=== PATIENT | female | born 2000 ===

== ENCOUNTER 2020-07-27 13:44 | Outpatient (REF) | payer OTHER, SELFPAY | END 2020-07-27 13:45 | disposition home or self-care (01) | LOC: HO.LAB 13:44 | PROVIDERS: Visit Provider Internal Medicine | DX: Z20.828 Contact with and (suspected) exposure to other viral communicable diseases (principal) | CPT/HCPCS: 87635 ==

== ENCOUNTER → 2020-09-01 09:39 | Outpatient (BNVA) | payer OTHER, SELFPAY | PROVIDERS: Visit Provider Advanced Practice Midwife | DX: Z76.89 Persons encountering health services in other specified circumstances (principal) ==

== ENCOUNTER → 2020-09-02 08:48 | Outpatient (BNVA) | payer OTHER, SELFPAY | PROVIDERS: Visit Provider Advanced Practice Midwife | DX: Z30.9 Encounter for contraceptive management, unspecified (principal) | CPT/HCPCS: 96372; 99212; J1050 ==

== ENCOUNTER 2020-09-29 13:08 | Outpatient (REF) | payer OTHER, SELFPAY ==
[2020-09-30 08:52] LABS: BV Int Neg Control Negative (Negative); BV Int Pos Control Positive (Positive)
[2020-09-30 20:53] LABS: C. trachomatis RNA TMA NOT DETECTED (NOT DETECTED); N. gonorrhoeae RNA TMA NOT DETECTED (NOT DETECTED)
== END 2020-09-29 13:09 | disposition home or self-care (01) ==
LOC: HO.LAB 13:08
PROVIDERS: PCP Internal Medicine; Visit Provider Advanced Practice Midwife
DX: Z12.4 Encounter for screening for malignant neoplasm of cervix (principal); Z20.2 Contact with and (suspected) exposure to infections with a predominantly sexual mode of transmission
CPT/HCPCS: 87480; 87491; 87510; 87591; 87660; 88142

== ENCOUNTER → 2020-11-25 10:39 | Outpatient (BNVA) | payer OTHER, SELFPAY | PROVIDERS: Visit Provider Advanced Practice Midwife | DX: Z30.9 Encounter for contraceptive management, unspecified (principal) | CPT/HCPCS: 81025; 96372; 99211 ==

== ENCOUNTER → 2020-12-03 13:38 | Outpatient (BNVA) | payer OTHER, SELFPAY | PROVIDERS: Visit Provider Internal Medicine Cardiovascular Disease | DX: R55 Syncope and collapse (principal) | CPT/HCPCS: 99212 ==

== ENCOUNTER → 2020-12-15 13:04 | Outpatient (BNV) | payer OTHER, SELFPAY | PROVIDERS: Visit Provider Internal Medicine | DX: D50.9 Iron deficiency anemia, unspecified (principal) | CPT/HCPCS: 99213; 99214 ==

== ENCOUNTER → 2021-02-17 12:28 | Outpatient (BNVA) | payer OTHER, SELFPAY | PROVIDERS: PCP Internal Medicine; Visit Provider Advanced Practice Midwife | DX: Z30.9 Encounter for contraceptive management, unspecified (principal) | CPT/HCPCS: 96372; 99211; J1050 ==

== ENCOUNTER → 2021-05-12 15:14 | Outpatient (BNVA) | payer OTHER, SELFPAY | PROVIDERS: PCP Internal Medicine; Visit Provider Advanced Practice Midwife | DX: Z30.42 Encounter for surveillance of injectable contraceptive (principal) | CPT/HCPCS: 96372 ==

== ENCOUNTER → 2021-07-30 13:08 | Outpatient (BNVA) | payer OTHER, SELFPAY | PROVIDERS: PCP Internal Medicine; Visit Provider Advanced Practice Midwife | DX: Z30.42 Encounter for surveillance of injectable contraceptive (principal) | CPT/HCPCS: 96372; 99211 ==

== ENCOUNTER 2021-10-06 13:19 | Outpatient (REF) | payer OTHER, SELFPAY ==
[2021-10-07 03:53] LABS: CT PCR NOT DETECTED (Not Detect.); NG PCR NOT DETECTED (Not Detect.)
[2021-10-07 09:04] LABS: BV Int Neg Control Negative (Negative); BV Int Pos Control Positive (Positive)
== END 2021-10-06 13:20 | disposition home or self-care (01) ==
LOC: HO.LAB 13:19
PROVIDERS: Visit Provider Advanced Practice Midwife
DX: Z01.419 Encounter for gynecological examination (general) (routine) without abnormal findings (principal); Z11.3 Encounter for screening for infections with a predominantly sexual mode of transmission; Z11.8 Encounter for screening for other infectious and parasitic diseases; Z79.3 Long term (current) use of hormonal contraceptives; F32.A Depression, unspecified
CPT/HCPCS: 87480; 87491; 87510; 87591; 87660

== ENCOUNTER → 2021-10-15 12:51 | Outpatient (BNVA) | payer OTHER, SELFPAY | PROVIDERS: Visit Provider Advanced Practice Midwife | DX: Z30.42 Encounter for surveillance of injectable contraceptive (principal) | CPT/HCPCS: 96372; 99211 ==

== ENCOUNTER → 2022-01-03 09:06 | Outpatient (BNVA) | payer OTHER, SELFPAY | PROVIDERS: Visit Provider Advanced Practice Midwife | DX: Z30.42 Encounter for surveillance of injectable contraceptive (principal) | CPT/HCPCS: 96372; 99212 ==

== ENCOUNTER → 2022-03-28 08:20 | Outpatient (BNVA) | payer OTHER, SELFPAY | PROVIDERS: Visit Provider Advanced Practice Midwife | DX: Z30.42 Encounter for surveillance of injectable contraceptive (principal) | CPT/HCPCS: 96372; 99211 ==

== ENCOUNTER → 2022-06-20 14:34 | Outpatient (BNVA) | payer OTHER, SELFPAY | PROVIDERS: Visit Provider Advanced Practice Midwife | DX: Z30.9 Encounter for contraceptive management, unspecified (principal) | CPT/HCPCS: 96372; 99211 ==

== ENCOUNTER 2024-02-20 11:05 | Outpatient (REF) | payer OTHER, SELFPAY | END 2024-02-20 11:06 | disposition home or self-care (01) | LOC: HO.LAB 11:05 | PROVIDERS: Visit Provider Advanced Practice Midwife | DX: Z20.2 Contact with and (suspected) exposure to infections with a predominantly sexual mode of transmission (principal) | CPT/HCPCS: 99212 ==

== ENCOUNTER 2024-02-20 11:05 | Outpatient (AMB) | payer OTHER, SELFPAY ==
--- NOTE | 2024-02-20 11:05 | A.OFFVIS_ITS ---
Vital Signs 02/20/24 11:11 Height 5 ft 1 in Weight 125 lb BMI 23.6 BP 100/60 Intake Visit Reasons: std testing Coning Machine Operator Required: No Information Interpreted: clinical only Joint Supervisor: Joint Supervisor Present Allergies environmental allergies Allergy (Verified 02/20/24 11:12) Runny Nose Bleach (Sodium Hypochlorite) Adverse Reaction (Verified 02/20/24 11:12) Difficulty Breathing Medication List - Last Reconciled 02/20/24 by Paulette Will CNM No Known Home Meds Is last menstrual period known: Yes Last menstrual period: 02/10/24 HPI HPI std testing: Details: She is here For STD check she just became active recently father of her 4. She is actually court with discuss parenting child support. She says she has not have penetrated sex with him thinking she can not get but she still wants checking for STDs they have been very intimate. She was thinking she could not get because she has not gotten so far she was not Depo- Provera periods back last fall. She is not interested in another method of control at this time though I invited her to really consider what she w ould do if she got after some discussion she decided to accepted prescription for Plan B. visit discussed signs and symptoms of ovulation and the extended number of days on either side of ovulation where she could get . She decided she get blood work for STIs today. She expressed shy about getting an exam she reminded me that I delivered her baby, June [id number]. She shares birthday with her daughter. [facility] Medical History Depressed Social History Household Members: Children Housing: Apartment Alcohol intake: never Patient Tobacco Use Status: Never used Tobacco Current occupational status: employed Gender identity: Female Female Reproductive History Menstrual Age of Menarche: 10 Duration of menses: 3-5 days Date of last menstrual period: 02/10/24 control method: none Total pregnancies: 1 Full term: 1 Date of last pap smear: 09/30/20 (negative) History of abnormal pap smear: No Physical Exam Vital Signs: Last Vital Signs BP 100/60 02/20/24 11:11 BMI result Body Mass Index 23.6 External Female Exam: normal external appearance and normal appearance of the urethra Speculum Exam - Vagina: normal appearance of the vagina and normal vaginal discharge Speculum Exam - Cervix: normal appearance of the cervix and Cervical os closed Results Reviewed Results Reviewed: Name: Christine Alejandro Age/Sex: 20/F Attending: Paulette Will CNM : 2000 Submitted by: Paulette Will CNM Copies to: MR #: [id number] Status: DEP REF Collected: 09/29/20 Location: .LAB Received: 09/30/20 Interpretation Satisfactory for evaluation. Mild inflammation. Negative for intraepithelial lesion or malignancy. Clinical Information LMP: Spotting on Depo Previous PAP test: Unknown date/findings Other history: On Depo Material Received ThinPrep cervical Electronically Signed By: TERESITA Jose (ASCP) 10/16/20 1211 The Pap Test is a screening procedure with the inherent possibility of both fal se negative and false positive results. Results should be interpreted in the context of historic and current clinical findings. Reliability of the Pap Test is enhanced by performing the test on a regular repetitive basis. Patient: Page 1 of 1 Assessment & Plan Assessment & Plan (1) Encounter for control: Code(s): Z30.9 - Encounter for contraceptive management, unspecified Category: Medical (2) Potential exposure to STD: Code(s): Z20.2 - Contact with and (suspected) exposure to infections with a predominantly sexual mode of transmission Category: Medical (3) Cervical cancer screening: Comment: 09/29/20 pap= neg Code(s): Z12.4 - Encounter for screening for malignant neoplasm of cervix Category: Medical Plan She is here For STD check she just became active recently father of her 4. She is actually court with discuss parenting child support. She says she has not have penetrated sex with him thinking she can not get but she still wants checking for STDs they have been very intimate. She was thinking she could not get because she has not gotten so far she was not Depo- Provera periods back last fall. She is not interested in another method of control at this time though I invited her to really consider what she would do if she got after some discussion she decided to accepted prescription for Plan B. visit discussed signs and symptoms of ovulation and the extended number of days on either side of ovulation where she could get . She decided she get blood work for STIs today. She expressed shy about getting an exam she reminded me that I delivered her baby, June [id number]. She shares birthday with her daughter. Orders: Orders Hepatitis C Antibody Today Z12.4 - Encounter for screening for malignant neoplasm of cervix, Z20.2 - Contact with and (suspected) exposure to infections with a predominantly sexual mode of transmission, Z30.9 - Encounter for contraceptive management, unspecified Bacterial Vaginosis Panel Today Z20.2 - Contact with and (suspected) exposure to infections with a predominantly sexual mode of transmission CT NG by PCR Today Z01.419 - Encounter for gynecological examination (general) (routine) without abnormal findings Hepatitis B Surface Antigen Today Z12.4 - Encounter for screening for malignant neoplasm of cervix, Z20.2 - Contact with and (suspected) exposure to infections with a predominantly sexual mode of transmission, Z30.9 - Encounter for contraceptive management, unspecified HIV Ab/Ag Today Z12.4 - Encounter for screening for malignant neoplasm of cer vix, Z20.2 - Contact with and (suspected) exposure to infections with a predominantly sexual mode of transmission, Z30.9 - Encounter for contraceptive management, unspecified Syphilis Screen Today Z12.4 - Encounter for screening for malignant neoplasm of cervix, Z20.2 - Contact with and (suspected) exposure to infections with a predominantly sexual mode of transmission, Z30.9 - Encounter for contraceptive management, unspecified Medications: New levonorgestrel (Plan B One-Step) 1.5 mg PO ONCE 1 tab 4RF Coding Level of Care Code Est Pt Level 3 (10593) Diagnoses Encounter for control Z30.9 Potential exposure to STD Z20.2 Cervical cancer screening Z12.4
[2024-02-20 11:11] VITALS: BP 100/60; BMI 23.6
== END 2024-02-20 11:41 | disposition home or self-care (01) ==
PROVIDERS: Visit Provider Advanced Practice Midwife
DX: Z30.9 Encounter for contraceptive management, unspecified (principal); Z20.2 Contact with and (suspected) exposure to infections with a predominantly sexual mode of transmission
CPT/HCPCS: 99213

== ENCOUNTER 2024-02-20 12:36 | Outpatient (REF) | payer OTHER, SELFPAY ==
[2024-02-20 14:36] LABS: CT PCR NOT DETECTED (Not Detect.); NG PCR NOT DETECTED (Not Detect.)
[2024-02-21 08:08] LABS: Syphilis Screen Nonreactive (Nonreactive)
[2024-02-21 08:25] LABS: HBsAGNum1 0.22 S/CO (0.00-0.99); HIV AB/AG Nonreactive (Nonreactive); HIV Num 1 0.05 S/CO (0.00-0.99); Hepatitis B Surface Antigen Negative (Negative); ~Hepatitis C Antibody Nonreactive (Nonreactive)
[2024-02-21 09:24] LABS: Bacterial Vaginosis PCR NEGATIVE (Negative); Candida Group PCR NOT DETECTED (Not Detect); Candida glab krusei PCR NOT DETECTED (Not Detect); Trichomonas vaginalis PCR NOT DETECTED (Not Detect)
== END 2024-02-20 12:37 | disposition home or self-care (01) ==
LOC: HO.HHCL 12:36
PROVIDERS: Visit Provider Advanced Practice Midwife
DX: Z20.2 Contact with and (suspected) exposure to infections with a predominantly sexual mode of transmission (principal); Z12.4 Encounter for screening for malignant neoplasm of cervix
CPT/HCPCS: 0352U; 0353U; 86780; 86803; 87340; 87389

== ENCOUNTER 2024-04-09 14:30 | Outpatient (RCR) | payer OTHER, SELFPAY ==
[2024-03-19 10:13] VITALS: BP 100/53; PULSE 61; RESP 16; TEMP 37.1; O2SAT 100
[2024-03-19] MEDS: 0.9 % Sodium Chloride Flush 10 ML SYRINGE 5 ML IVFLUSH (10:20)
[2024-03-19] MEDS: Acetaminophen 325 MG TABLET 650 MG PO (10:26)
[2024-03-19] MEDS: diphenhydrAMINE HCL 25 MG CAPSULE PO (10:26)
[2024-03-19] MEDS: Iron Sucrose Complex 200 MG in 0.9 % Sodium Chloride 100 ML 440 MG IV (10:46)
[2024-03-26 12:17] VITALS: BMI 23.8
[2024-03-26 12:18] VITALS: BP 93/57; PULSE 85; RESP 18; TEMP 37.4; O2SAT 98
[2024-03-26] MEDS: Acetaminophen 325 MG TABLET 650 MG PO (12:36)
[2024-03-26] MEDS: diphenhydrAMINE HCL 25 MG CAPSULE PO (12:38)
[2024-03-26] MEDS: Iron Sucrose Complex 200 MG in 0.9 % Sodium Chloride 100 ML 440 MG IV (12:46)
[2024-04-02 11:02] VITALS: BP 93/54; PULSE 76; RESP 16; TEMP 37.2; O2SAT 100
[2024-04-02] MEDS: Iron Sucrose Complex 200 MG in 0.9 % Sodium Chloride 100 ML 837.9 MG IV (11:11)
[2024-04-09 14:34] VITALS: BP 97/56; PULSE 75; RESP 16; TEMP 36.1; O2SAT 99
[2024-04-09] MEDS: Iron Sucrose Complex 200 MG in 0.9 % Sodium Chloride 100 ML 440 MG IV (14:44)
--- NOTE | 2024-04-09 14:50 | HO.INF ---
patient declined premedications
[2024-04-09] MEDS: 0.9 % Sodium Chloride Flush 10 ML SYRINGE 5 ML IVFLUSH (15:05)
== END 2024-04-09 15:14 | disposition home or self-care (01) ==
LOC: HO.INF 14:30
PROVIDERS: Visit Provider Internal Medicine
DX: D64.9 Anemia, unspecified (principal)
CPT/HCPCS: 96365; 96374; J1756

== ENCOUNTER 2024-05-29 09:49 | Outpatient (AMB) | payer OTHER, SELFPAY ==
[2024-05-29 09:50] VITALS: BP 98/60; BMI 22.8
--- NOTE | 2024-05-29 09:50 | A.OFFVIS_ITS ---
Vital Signs 05/29/24 09:50 Height 5 ft Weight 117 lb BMI 22.8 BP 98/60 Intake Visit Reasons: control consult ( depo) Chemical Worker Required: No Information Interpreted: clinical only Food Safety Manager: Food Safety Manager Present Allergies environmental allergies Allergy (Verified 05/29/24 09:50) Runny Nose Bleach (Sodium Hypochlorite) Adverse Reaction (Verified 05/29/24 09:50) Difficulty Breathing Medication List - Last Reconciled 05/29/24 by Paulette Will CNM No Known Home Meds HPI HPI control consult ( depo): Details: Here for a discussion to get back on the control she has been on Depo- Provera in the past and she is very familiar with it and did not have any problems with that she was offered for about a year and talked about it at the last visit when she came for an STD check but she has decided to get back on it. Her last period was beginning of May and she is due for it coming up probably next week. 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 She is awaiting an 1st appointment with a therapist for support. [facility] Medical History Depressed Social History Household Members: Children Housing: Apartment Alcohol intake: never Patient Tobacco Use Status: Never used Tobacco Current occupational status: employed Gender identity: Female Female Reproductive History Menstrual Age of Menarche: 10 control method: none Total pregnancies: 1 Full term: 1 Date of last pap smear: 09/30/20 (negative) Physical Exam Vital Signs: Last Vital Signs BP 98/60 05/29/24 09:50 BMI result Body Mass Index 22.8 Results Reviewed Results Reviewed: Name: JavonChristine Age/Sex: 20/F Attending: Paulette Will CNM : 2000 Submitted by: NicolettePaulette Mendel Copies to: MR #: [id number] Status: DEP REF Collected: 09/29/20 Location: .LAB Received: 09/30/20 Interpretation Satisfactory for evaluation. Mild inflammation. Negative for intraepithelial lesion or malignancy. Clinical Information LMP: Spotting on Depo Previous PAP test: Unknown date/findings Other history: On Depo Material Received ThinPrep cervical Electronically Signed By: TERESITA Jose (ASCP) 10/16/20 1211 The Pap Test is a screening procedure with the inherent possibility of both false negative and false positive results. Results should be interpreted in the context of historic and current clinical findings. Reliability of the Pap Test is enhanced by performing the test on a regular repetitive basis. Patient: Page 1 of 1 Assessment & Plan Assessment & Plan (1) Cervical cancer screening: Comment: 09/29/20 pap= neg Code(s): Z12.4 - Encounter for screening for malignant neoplasm of cervix Category: Medical (2) Depot contraception: Comment: Reordered 05/29/2024 for 1 year, to be started beginning of the next period. Code(s): Z30.42 - Encounter for surveillance of injectable contraceptive Category: Social Hx Plan Reviewed her supports and stressors reviewed side effects of Depo-Provera. She is on a waiting list story is awaiting a reversed appointment with therapist for support. She has active plans to change her job to 1 that will work better for her and her daughter. She is very clear she wants to restart the Depo-Provera and she has a lot of experience with it having been on it in past. Reviewed that the last visit was a visit for STI screening so she still is due for her annual with Pap and that will be scheduled as well. I recommend she brain picker the Depo-Provera as soon as she can and as soon as she gets her period, To call the office the 1st day that it is open (this is weekend so she may get her this -- we will be closed Monday) to get the Depo-Provera and then every 12 weeks from there,. We will see her for her next annual and Pap soon. Medications: New medroxyprogesterone (Depo-Provera) 150 mg IM Q12W 1 mL 5RF Coding Level of Care Code Est Pt Level 3 (52845) Diagnoses Cervical cancer screening Z12.4 Depot contraception Z30.42
== END 2024-05-29 10:29 | disposition home or self-care (01) ==
PROVIDERS: Visit Provider Advanced Practice Midwife
DX: Z30.42 Encounter for surveillance of injectable contraceptive (principal)
CPT/HCPCS: 99213

== ENCOUNTER → 2024-05-29 09:49 | Outpatient (BNVA) | payer OTHER, SELFPAY | PROVIDERS: Visit Provider Advanced Practice Midwife | DX: Z30.42 Encounter for surveillance of injectable contraceptive (principal) | CPT/HCPCS: 99212 ==

== ENCOUNTER 2024-05-31 09:03 | Outpatient (AMB) | payer OTHER, SELFPAY ==
--- NOTE | 2024-05-31 09:35 | AM.OFFVISNUR ---
Vital Signs 05/31/24 09:36 Height 5 ft Weight 117 lb BMI 22.8 Intake Visit Reasons: DEPO Flume Worker Required: No Allergies environmental allergies Allergy (Verified 05/29/24 09:50) Runny Nose Bleach (Sodium Hypochlorite) Adverse Reaction (Verified 05/29/24 09:50) Difficulty Breathing Medication List - Last Reconciled 05/31/24 by Terese Murry medroxyprogesterone (Depo-Provera) 150 mg IM Q12W Is last menstrual period known: Yes Last menstrual period: 05/29/24 Post menopausal: No Patient : No Nursing Note Christine is here for Depo restart. No c/o. LMP 05/29/24 and WNL. Pt denies UPI in the last 2 weeks. Pt tolerated injection well and she will schedule her next injection in 12 weeks. Pt verbalizes understanding and agrees with plan. No further questions. Office Procedures Depo Questionnaire If YES to any of the following questions, please consult a provider. Date of last menstrual period: 05/29/24 Menstrual pattern since last injection has been: Not Applicable Irregular bleeding?: No Breast lumps or other breast changes?: No Changes in weight or appetite?: No Depression or changes in mood?: No Abnormal hair growth or loss?: No Skin problems (rash, acne, discoloration)?: No Pain at the injection site?: No Headaches?: No Nervousness?: No Abdominal pain or cramping?: No Dizziness or nausea?: No Fatigue or weakness?: No Decrease in sexual drive?: No Chest pain or shortness of breath?: No Swelling in arms or legs?: No Form completed by?: Terese Murry bandage winding machine operator Meds Depo-Provera 150 mg/mL intramuscular syringe Performing Provider: Paulette Will CNM Performing Location: [facility] Administered by: Terese Murry on 05/31/24 09:39 Dose Route Admin Location Dispensed Lot Number Expiration Date [facility] Central Office Operator Supervisor 150 mg IM left deltoid 1 mL [id number] 08/31/26 65979-184-32 [facility] Assessment & Plan Assessment & Plan (1) Well woman exam with routine gynecological exam: Code(s): Z01.419 - Encounter for gynecological examination (general) (routine) without abnormal findings Category: Medical Plan Pt will schedule her next injection in 12 weeks. Pt verbalizes understanding and agrees with plan. No further questions. Orders: Orders AMB Medroxyprogesterone Injection Patient Supplied Today Z30.42 - Encounter for surveillance of injectable contraceptive BODY LINER - Contraceptive Follow-Up Christine is here for Depo provera contraceptive injection. What type of contraception: Depo Last menstrual period: 05/29/24 Date of last sexual encounter: <1 month New partner since last visit: No
[2024-05-31 09:36] VITALS: BMI 22.8
== END 2024-05-31 09:32 | disposition home or self-care (01) ==
LOC: HO.HWS 09:03
PROVIDERS: Visit Provider Advanced Practice Midwife
DX: Z30.42 Encounter for surveillance of injectable contraceptive (principal); Z01.419 Encounter for gynecological examination (general) (routine) without abnormal findings

== ENCOUNTER → 2024-05-31 09:03 | Outpatient (BNVA) | payer OTHER, SELFPAY | PROVIDERS: Visit Provider Advanced Practice Midwife | DX: Z30.42 Encounter for surveillance of injectable contraceptive (principal) | CPT/HCPCS: 96372; 99211; J1050 ==

== ENCOUNTER 2024-08-20 08:52 | Outpatient (AMB) | payer OTHER, SELFPAY ==
[2024-08-20 09:04] VITALS: BMI 24.4
--- NOTE | 2024-08-20 09:04 | AM.OFFVISNUR ---
Vital Signs 08/20/24 09:04 Height 5 ft Weight 125 lb 2 oz BMI 24.4 Intake Visit Reasons: DEPO Allergies environmental allergies Allergy (Verified 05/29/24 09:50) Runny Nose Bleach (Sodium Hypochlorite) Adverse Reaction (Verified 05/29/24 09:50) Difficulty Breathing Nursing Note Christine is here for her scheduled Depo-Provera inj. She denies any problems or concerns. Pt needs an AG appt soon, prior to next appt. Office Procedures Depo Questionnaire If YES to any of the following questions, please consult a provider. Date of last injection: 05/31/24 Date of last menstrual period: 08/12/24 Date of last gynecology exam: 10/06/21 Menstrual pattern since last injection has been: Light Irregular bleeding?: No Breast lumps or other breast changes?: No Changes in weight or appetite?: No Depression or changes in mood?: No Abnormal hair growth or loss?: No Skin problems (rash, acne, discoloration)?: No Pain at the injection site?: No Headaches?: No Nervousness?: No Abdominal pain or cramping?: No Dizziness or nausea?: No Fatigue or weakness?: No Decrease in sexual drive?: No Chest pain or shortness of breath?: No Swelling in arms or legs?: No Form completed by?: Roni Smith LPN Office Meds Depo-Provera 150 mg/mL intramuscular syringe Performing Provider: Paulette Will CNM Performing Location: [facility] Administered by: Letty Smith LPN on 08/20/24 09:05 Dose Route Admin Location Dispensed Lot Number Expiration Date [facility] Drupal Developer 150 mg IM left gluteus 1 mL [id number] 10/01/26 33254-873-65 [facility] Assessment & Plan Assessment & Plan Orders: Orders AMB Medroxyprogesterone Injection Patient Supplied Today Z30.42 - Encounter for surveillance of injectable contraceptive
== END 2024-08-20 09:00 | disposition home or self-care (01) ==
PROVIDERS: Visit Provider Advanced Practice Midwife
DX: Z30.42 Encounter for surveillance of injectable contraceptive (principal)

== ENCOUNTER → 2024-08-20 08:52 | Outpatient (BNVA) | payer OTHER, SELFPAY | PROVIDERS: Visit Provider Advanced Practice Midwife | DX: Z30.42 Encounter for surveillance of injectable contraceptive (principal) | CPT/HCPCS: 96372; 99211; J1050 ==

== ENCOUNTER → 2024-11-06 15:23 | Outpatient (BNVA) | payer OTHER, SELFPAY | PROVIDERS: Visit Provider Advanced Practice Midwife | DX: Z30.42 Encounter for surveillance of injectable contraceptive (principal) | CPT/HCPCS: 96372; 99211; J1050 ==

== ENCOUNTER 2024-12-16 13:18 | Outpatient (REF) | payer OTHER, SELFPAY ==
[2024-12-17 03:07] LABS: CT PCR NOT DETECTED (Not Detect.); NG PCR NOT DETECTED (Not Detect.)
[2024-12-17 10:50] LABS: Bacterial Vaginosis PCR POSITIVE (Negative); Candida Group PCR NOT DETECTED (Not Detect); Candida glab krusei PCR NOT DETECTED (Not Detect); Trichomonas vaginalis PCR NOT DETECTED (Not Detect)
[2024-12-25 12:54] LABS: HPV Genotype 16 Negative (Negative); HPV Genotype 18 Negative (Negative); HPV High Risk Negative (Negative)
== END 2024-12-16 13:19 | disposition home or self-care (01) ==
LOC: HO.LNP 13:18
PROVIDERS: Visit Provider Advanced Practice Midwife
DX: Z01.419 Encounter for gynecological examination (general) (routine) without abnormal findings (principal); Z20.2 Contact with and (suspected) exposure to infections with a predominantly sexual mode of transmission; Z79.3 Long term (current) use of hormonal contraceptives
CPT/HCPCS: 81515; 87491; 87591; 87626; 88175; 99395; 99459

== ENCOUNTER 2024-12-16 13:18 | Outpatient (AMB) | payer OTHER, SELFPAY ==
[2024-12-16 13:23] VITALS: BP 98/64; BMI 26.4
--- NOTE | 2024-12-16 13:23 | A.OFFVIS_ITS ---
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 1 year ago, before depo. 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 She has been coming for her Depo-Provera weight gain was noticed and she told the nurse that she was happy to have gained some weight last Depo was given 11/06/2024.: Office Meds Depo-Provera 150 mg/mL intramuscular syringe Performing Provider: Paulette Will CNM Performing Location: [facility] Administered by: Letty Smith LPN on 11/06/24 15:38 Dose Route Admin Location Dispensed Lot Number Expiration Date [facility] [employer] 150 mg IM lt gluteus 1 mL [id number] 01/29/27 10887-028-58 [facility] She says she has been under lots of stress but she feels like the Depo-Provera is helping her with her appetite so between the stress and the Depo and working out and eating a lot she has balancing her weight and she feels good where she is she actually sometimes feels good even a little heavier. She is not particularly worried about any STIs but accepts testing and she is due for Pap smear today She is not getting a periods since she is on the Depo-Provera. She saw her primary care provider a little while back but that was for back pain she is not sure when she last had a full annual with lab work and everything. She was getting transfusions or infusions because she was so anemic last summer and she thinks she was probably supposed to have an appointment by now so she is going to stop on the way out of the building and see if she can check in with them she was anemic because her periods were so heavy but she is not getting her periods now because of the Depo so she is thinks that it will be better. She does have a therapist but she is avoiding medication and she is trying to learn ways of managing things when she is feeling depressed and she also gets anxious and she has OCD that kicks in. 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 [facility] Medical History (Updated 12/16/24 @ 14:00 by Paulette Will CNM) Depressed Social History Household Members: Children Housing: Apartment Alcohol intake: never Patient Tobacco Use Status: Never used Tobacco Current occupational status: employed Gender identity: Female Female Reproductive History Menstrual Age of Menarche: 10 control method: progesterone injection (Depo) Total pregnancies: 1 Full term: 1 Date of last pap smear: 09/29/20 (negative pap smear) History of abnormal pap smear: No Physical Exam Vital Signs: BMI result Body Mass Index 26.4 Const General: healthy appearing, comfortable, no acute distress, well developed and alert Nutritional Appearance: average body habitus Orientation/consciousness: patient oriented x3 Limitations: no limitations HEENT Head: Yes normocephalic Neck Neck: Yes normal visual inspection Chest Chest palpation & inspection: normal inspection of the chest Breast/axilla inspection: normal inspection of the breasts and normal inspection of the axillae Breast/axilla palpation: normal palpation of the breasts and normal palpation of the axillae Resp Effort & Inspection: normal respiratory effort GI Inspection: Yes normal to inspection, No Abdominal wall edema and No distended Palpation (GI): Soft to palpation and nontender Other: External exam within normal limits vagina pink and moist there is a yellowish slightly bolivar/clearish kind of discharge and there was a little bit of friability with the cervix/spotting/we will await the test results Cervix otherwise parous mobile nontender uterus midposition mobile nontender small adnexa nontender good tone with Kegel. General: Yes bladder normal to palpation External Female Exam: normal external appearance and normal appearance of the urethra Speculum Exam - Vagina: normal appearance of the vagina, normal palpation and normal vaginal discharge Speculum Exam - Cervix: normal appearance of the cervix, normal palpation and nontender Bimanual exam- vagina & uterus: normal bimanual exam, normal palpation, uterine size normal, bladder normal to palpation, consistency normal, normal palpation, uterine mobility normal, uterine shape normal, No Cervical tenderness present, non-tender and no cervical motion tenderness Bimanual Exam- Adnexa, other: normal adnexae, no masses, normal and No adnexal tenderness Neuro General: patient oriented x3 Results Reviewed Results Reviewed: Name: Christine Alejandro Age/Sex: 20/F Attending: Paulette Will CNM : 2000 Submitted by: Paulette Will CNM Copies to: MR #: [id number] Status: DEP REF Collected: 09/29/20 Location: .LAB Received: 09/30/20 Interpretation Satisfactory for evaluation. Mild inflammation. Negative for intraepithelial lesion or malignancy. Clinical Information LMP: Spotting on Depo Previous PAP test: Unknown date/findings Other history: On Depo Material Received ThinPrep cervical Electronically Signed By: TERESITA Jose (ASCP) 10/16/20 1211 The Pap Test is a screening procedure with the inherent possibility of both false negative and false positive results. Results should be interpreted in the context of historic and current clinical findings. Reliability of the Pap Test is enhanced by performing the test on a regular repetitive basis. Patient: Page 1 of 1 Assessment & Plan Assessment & Plan (1) control counseling: Code(s): Z30.09 - Encounter for other general counseling and advice on contraception Category: Medical (2) Well woman exam with routine gynecological exam: Code(s): Z01.419 - Encounter for gynecological examination (general) (routine) without abnormal findings Category: Medical (3) Depot contraception: Comment: Reordered 05/29/2024 for 1 year, to be started beginning of the next period. Code(s): Z30.42 - Encounter for surveillance of injectable contraceptive Category: Social Hx (4) Cervical cancer screening: Comment: 09/29/20 pap= neg Code(s): Z12.4 - Encounter for screening for malignant neoplasm of cervix Category: Medical (5) Potential exposure to STD: Code(s): Z20.2 - Contact with and (suspected) exposure to infections with a predominantly sexual mode of transmission Category: Medical Plan -----Discussed in this visit the following: healthy balanced diet, regular and consistent exercise, getting recommended health screens, doing the best she can for her particular health concerns, kegel exercises, pap smear screening and followup recommendations, mammography screening and SBE, normal changes in cycles in her life stage--- . Discussed that we will wait for the results the testing today to see if there is anything with treating or not reviewed that we tested for gonorrhea chlamydia trichomoniasis which are 3 STDs and also for bacterial vaginosis and yeast which are not and would not need treatment unless she has symptoms. I did offer her blood testing for HIV hep B hep C and syphilis but she declined. She is going to check with her scheduled to see when her primary care appointment is and when she last had complete blood work. She is also going to be checking with Hematology as she leaves the building and see if she has an upcoming follow-up visit for the anemia. I told her I would refill the Depo-Provera for year so she does not run out . She is very diligent about her appointments and verified her appointment Monday but then she was surprised to see that today she had 2 appointments listed 1 at 01:30 and 1 at 01:50 in the same/this office. We could not find a reason for that. Reviewed that sometimes it is possible to continue gaining weight and it can become somewhat more unmanageable and it would be a good thing to be careful about that so she does not then have challenges with the health issues that come with obesity. She is working hard on learning good coping strategies to deal with her depression and OCD. Orders: Orders Pap Smear Today Z01.419 - Encounter for gynecological examination (general) (r outine) without abnormal findings CT NG by PCR Today Z01.419 - Encounter for gynecological examination (general) (routine) without abnormal findings Bacterial Vaginosis Panel Today Z01.419 - Encounter for gynecological examination (general) (routine) without abnormal findings Medications: Refilled medroxyprogesterone (Depo-Provera) 150 mg IM Q12W 1 mL 5RF Coding Level of Care Code Est Pt Prev Care 18-39y(08523) Diagnoses control counseling Z30.09 Well woman exam with routine gynecological exam Z01.419 Depot contraception Z30.42 Cervical cancer screening Z12.4 Potential exposure to STD Z20.2
--- OUTSIDE RECORDS SUMMARY | 2024-12-16 15:27 | XMS_ITS | Data Portability ---
Author Organization [facility] Link s, [address] Address [address] [place] [address] Care Team Providers Care Ruby Engineer Name Role Phone [facility] Care Provider Assessment No assessment recorded. Plan of Treatment Reminders Order Date Submit Date Provider Last Modified By Organization Details Last Modified Time Details Appointments None recorded. Lab None recorded. Referral None recorded. Procedures None recorded. Surgeries None recorded. Imaging None recorded. Medication Orders Augmentin 875 mg-125 mg tablet 2022 023 [facility] #[id number], [phone] [place], [address], 3 10:14:56 prednisone 20 mg tablet 2022 023 [facility] [phone] [place], [address], 3 10:14:55 fexofenadin e-pseudoeph edrine ER 180 mg-240 mg tablet,ext. release 24 hr 2022 023 [facility] #1130, [phone] [place], [address], 3 10:14:55 Allergy Relief (fluticason e) 50 mcg/actuati on nasal spray,suspe nsion 2022 023 [facility] #1130, [phone] [place], [address], 3 10:14:54 Patient TargetsNo targets recorded. Patient Instructions Encounter Date Encounter Id Patient Instructions Last Modified By Organization Details Last Modified Time 03/11/2023 [id number] earache: care instructions Not available 03/11/2023 10:14:51 ear infection (otitis media): care instructions Not available 03/11/2023 10:14:51 An ear infection may start with a cold and affect the middle ear (otitis media). It can hurt a lot. Most ear infections clear up on their own in a couple of days and do not need antibiotics. Also, antibiotics do not work against viruses, which may be the cause of your infection. Regular doses of pain relievers are the best way to reduce your fever and help you feel better. How can you care for yourself at home? Take pain medicines exactly as directed. If the doctor gave you a prescription medicine for pain, take it as prescribed. If you are not taking a prescription pain medicine, take an xwqs-mqw-kdkdrav medicine, such as acetaminophen (Tylenol), ibuprofen (Advil, Motrin), or naproxen (Aleve). Read and follow all instructions on the label. Do not take two or more pain medicines at the same time unless the doctor told you to. Many pain medicines have acetaminophen, which is Tylenol. Too much acetaminophen (Tylenol) can be harmful. Plan to take a full dose of pain reliever before bedtime. Getting enough sleep will help you get better. Try a warm, moist face cloth on the ear. It may help relieve pain. If your doctor prescribed antibiotics, take them as directed. Do not stop taking them just because you feel better. You need to take the full course of antibiotics. [email or web address] Not available 03/11/2023 10:14:49 Reason for Referral None Reported. Problems No Known Problems Procedures Surgical History Date Name Laterality Status Provider Name and Address Organization Details Recorded Time 3 OC-[facility] Send Out Template NON DOT completed MERCED NICOLAS - [facility] 02/17/2023 13:43:30 Imaging Results None recorded. Procedure Notes None recorded. Medical Equipment None Reported. Allergies No known drug allergies Medications Name Sig Start Date Stop Date Status Note LastModified by Organization Details LastModified Time amoxicillin 500 mg capsule TAKE 1 CAPSULE BY MOUTH THREE TIMES A DAY 03/11 completed Not Available Not Available Not Available Augmentin 875 mg-125 mg tablet Take 1 tablet every 12 hours by oral route with meals for 10 days. 2022 active Not Available Not Available Not Avai lable hydrocodone 5 mg-acetamin ophen 325 mg tablet TAKE 1 TABLET BY MOUTH EVERY 6 HOURS NEEDED FOR PAIN 03/11 completed Not Available Not Available Not Available prednisone 20 mg tablet Take 2 tablets every day by oral route in the morning for 3 days. 2022 active Not Available Not Available Not Avai lable ibuprofen 600 mg tablet TAKE 1 TABLET BY MOUTH EVERY 6 HOURS NEEDED WITH FOOD 03/11 completed Not Available Not Available Not Available medroxyprog esterone 150 mg/mL intramuscul ar suspension INJECT 1 ML (150 MG) INTRAMUSC ULARLY EVERY 12 WEEKS 03/11 completed Not Available Not Available Not Available fexofenadin e-pseudoeph edrine ER 180 mg-240 mg tablet,ext. release 24 hr Take 1 tablet every day by oral route as needed for 10 days. 2022 active Not Available Not Available Not Avai lable Allergy Relief (fluticason e) 50 mcg/actuati on nasal spray,suspe nsion Agency 1 spray every day by intranasa l route as directed for 30 days. 2022 active Not Available Not Available Not Avai lable Vitals Date Recorded Body height Body mass index (BMI) Body weight Respiratory rate Body temperature Pain severity - 0-10 verbal numeric rating [Score] - Reported Heart rate Oxygen saturation Oxygen saturation in Arterial blood by Pulse oximetry Systolic blood pressure Diastolic blood pressure Provider Name and Address Organization Details Last Updated DateTime 3 152.4 cm 27.3 kg/m2 96522.9 3 g 18 /min 99.2 [degF] 0 77 /min 100 % 100 % 100 mm[Hg] 70 mm[Hg] Kat Rueda [facility] 3 10:03:42 Social History Question Answer Notes LastModified by Organizat ion Details LastModified Time Tobacco Smoking Status Never Smoker [facility] 03/11/2023 10:00:59 What Is Your Level Of Alcohol Consumption? None Information not available 03/11/2023 Do You Use Any Illicit Or Recreational Drugs? No [email or web address] Information not available 03/11/2023 Do You Or Have You Ever Used Any Other Forms Of Tobacco Or Nicotine? No [email or web address] Information not available 03/11/2023 Sex: Unknown Functional Status None recorded. Mental Status None recorded. Family History Nothing Reported. Medical History No medical history recorded. Gynecological History Statement/Question Response Date of LMP 03/11/2023 Is there any chance of ? No LMP Approximate Obstetrics History GPAL:G 0 P 0 0 0 0 Past Encounters Encounter ID Performer Location Encounter Start Date Encounter Closed Date Diagnosis/Indication Diagnosis SNOMED-CT Code Diagnosis ICD10 Code Diagnosis Note [id number] [address] [place] [address] 03/02/2021 16:06:41 03/02/2021 16:45:57 [id number] [address] [place] [address] 09/30/2018 12:51:42 09/30/2018 13:26:27 [id number] [address] [address] [place] [address] 09/27/2018 12:15:15 09/27/2018 12:49:19 [id number] [address] [place] [address] 03/07/2021 10:46:54 03/07/2021 12:40:02 [id number] [address] [place] [address] 05/07/2018 13:17:07 05/07/2018 14:39:52 [id number] BRANNON HORVATH MD [address] [place] [address] 02/17/2023 12:55:17 02/17/2023 13:46:22 History and physical examination, occupation 791968642 Z02.1 [id number] Micheal Oneill NP [address] [facility] [place] [address] 03/11/2023 09:40:42 03/11/2023 10:17:02 Acute left otitis media 280863355 H66.92 Health Concerns Section Related Observation LastModified by Organization Detai ls LastModified Time None Recorded Concern Status LastModified by Organization Details LastModified Time None Recorded Advance Directives Directive None Recorded Payers Encounter Date Sequence Insurance Name Policy Number Policy Aguilera Covered Member ID Aguilera Member ID Guarantor Name 09/30/2018 2 [place] [facility] Christine Oglesby Vannorman [id number] Christine Vannorman 03/02/2021 1 [facility] (MEDICAID REPLACEMENT - HMO) GILLIAN Oglesby Vannorman [id number] Christine Vannorman 03/02/2021 2 [place] [facility] Oglesby Vannorman [id number] Christine Vannorman 03/07/2021 1 [facility] (MEDICAID REPLACEMENT - HMO) [facility] Vannorman [id number] Christine Vannorman 03/07/2021 2 [place] [facility] Oglesby Vannorman [id number] Christine Vannorman 02/17/2023 [employer] Christine Vannorman 03/11/2023 1 [facility] (MEDICAID REPLACEMENT - HMO) GILLIAN Oglesby Vannorman [id number] Christine Vannorman 03/11/2023 2 [place] Christine Oglesby Vannorman [id number] Christine Vannorman Notes Date Note Type Note Provider Name and Address Organization Details Recorded Time 03/11/2023 text/html CongestionReport ed bypatient.Notes:nasal congestion with post nasal drip x 3 days. denies nay fever or fever with chills. no SOB or respiratory distress.Ear Pain Brief HPIReported bypatient.Location:pain radiates to neck; left Onset/Timing:intermitte nt pain; gradual onset Duration:occurs daily; sensation/episode variable length; constant pain Quality:aching pain;sharp pain Severity:getting worse; current pain 5/10 Context:recent ear infection Alleviating factors:ototopical antibiotics: ; nasal steroid spray Aggravating factors:sinus infections; allergies; irrigation of ear Associated Symptoms:Cough;nasal congestion;nasal discharge Micheal Oneill NP [address] [place], [address], [place] - [facility] 03/11/2023 10:15:08 OBGyn Episode No OBEpisode recorded.
--- OUTSIDE RECORDS SUMMARY | 2024-12-16 15:27 | XMS_ITS | Clinical Summary ---
Author Organization [facility] [address] [facility][1] lding Address [address] [place] [address] Phone Care Team Providers Care Historical Society Director Name Role Phone Muna Kumari MD Primary Care Provider Allergies No known active allergies Medications medroxyPROGEST ERone 150 mg/mL injection INJECT 1 ML INTRAMUSCULARLY EVERY 12 WEEKS 05/29/20 24 Active Active Problems Problem Noted Date Diagnosed Date Anemia 07/24/2019 Encounters Date Type Department Care Team Description 10/15/2024 1:00 PM EST Evaluation [address] [address] Isela Alvarenga PT Chronic midline low back pain without sciatica (Primary Dx) 09/19/2024 3:15 PM EST Office Visit Adult [address] [address] Marleny Khoury PA Pharyngitis, unspecified etiology (Primary Dx) 09/19/2024 Telephone Adult [facility] [address] [place] [address] Muna Kumari MD from Last 3 Months Immunizations Name Administration Dates Next Due HPV 9-valent (Gardisil) 9yo to less than 46yo Influenza Quadravalent, MDCK , 0.5ml, preservative free (Flucelvax) 6mo and older 07/24/2019 Surgical History Surgery Date Site/Laterality Comments OTHER SURGICAL HISTORY PROCEDURE: DENIES PREVIOUS SURGERY Medical History Medical History Date Comments Anemia 07/24/2019 DX:Anemia Homelessness 05/09/2020 DX:Homelessness Family History Medical History Relation Name Comments Other: health unknown Father Diabetes Mother Seizures Sister Relation Name Status Comments Father Mother Sister Social History Tobacco Use Types Packs/Day Years Used Date Smoking Tobacco: Never Smokeless Tobacco: Never Tobacco Cessation:Counseling Given: Not Answered Alcohol Use Standard Drinks/Week Comments No 0 (1 standard drink = 0.6 oz pur e alcohol) Housing Instability Answer Date Recorde d Are you worried that in the next 2 months you may not have stable housing? No 09/19/2024 Food Access & Nutrition Answer Date Rec orded Do you have access to a vari ety of food including fruits and vegetables? Yes 09/19/2024 Health Literacy Answer Date Recorded How often do you need to hav e someone help you when you read instructions, pamphlets, or other written material from your doctor or pharmacy? Never 09/19/2024 Caregiver: How often do you need to have someone help you when you read instructions, pamphlets, or other written material from your doctor or pharmacy? Not on file 09/19/2024 Financial Risk Answer Date Recorded How hard is it for you to pa y for the very basics like food, housing, medical care, and air conditioning / heating? Very hard 09/19/2024 Transportation Answer Date Recorded Has the lack of transportati on kept you from meetings, work, or from getting things needed for daily living? No Has the lack of transportati on kept you from medical appointments or from getting medications? No 09/19/2024 Social Isolation Answer Date Recorded How often do you feel lonely or isolated from th ose around you? Often 09/19/2024 Food Risk Answer Date Recorded Within the past 12 months we worried whether our food would run out before we got money to buy more. Never true 09/19/2024 Within the past 12 months th e food we bought just didn't last and we didn't have money to get more. Never true 09/19/2024 Dependent Care Answer Date Recorded Do you need help finding or paying for care for your loved ones. For example, children's service worker or elderly care for an older adult? No 09/19/2024 Education Answer Date Recorded Do you think completing more education or training, like finishing a GED, going to college, or learning a trade, would be helpful for you? Yes 09/19/2024 Employment and Income Answer Date Recor ded During the last four weeks, have you been actively looking for work? Yes 09/19/2024 Living Situation Answer Date Recorded What is your living situation? 1 11/20/2023 Comments No Sex and Gender Information Value Date Recorded Sex Assigned at Not on file Legal Sex Female 8:54 AM EST Gender Identity Not on file Sexual Orientation Not on file Obstetrics History Last Filed Vital Signs Vital Sign Reading Time Taken Comments Blood Pressure 100/70 09/19/2024 3:18 PM EST Pulse 100 09/19/2024 3:18 PM EST Temperature 36.4 ??C (97.6 ??F) 09/19/2024 3:18 PM ES T Respiratory Rate - - Oxygen Saturation - - Inhaled Oxygen Concentration - - Weight 56.1 kg (123 lb 9.6 oz) 09/19/2024 3:18 P M EST Height 152.4 cm (5') 09/19/2024 3:18 PM EST Body Mass Index 24.14 09/19/2024 3:18 PM EST Plan of Treatment Health Maintenance Due Date Last Done Comments DTaP,Tdap,and Td Vaccines (1 - Tdap) 2018 Hepatitis B Vaccines (1 of 3 - 19+ 3-dose series) 2018 HPV Vaccines (2 - 3-dose series) 06/04/2020 05/07/2020 Cervical Cancer Screening: P ap Smear 2020 HIV Screening 09/04/2022 Hepatitis C Screening 09/04/2022 COVID-19 Vaccine (1 - 2023-2 5 season) 2024 Influenza Vaccine (#1) 2024 07/24/2019 Depression Screening 09/19/2025 09/19/2024, 05/20/2024 Social Influencers of Health Screening 09/19/2025 09/19/2024 Cholesterol Screening (Lipid Panel) 05/20/2029 05/20/2024, 05/20/2024 HIB Vaccines Aged Out No longer eligi ble based on patient's age to complete this topic Hepatitis A Vaccines Aged Out No long er eligible based on patient's age to complete this topic IPV Vaccines Aged Out No longer eligi ble based on patient's age to complete this topic MMR Vaccines Aged Out No longer eligi ble based on patient's age to complete this topic Meningococcal ACWY Vaccine Aged Out N o longer eligible based on patient's age to complete this topic Meningococcal B Vacine Aged Out No lo nger eligible based on patient's age to complete this topic Pneumococcal Vaccine: Pediatrics (0 to 5 Years) and At-Risk Patients (6 to 64 Years) Aged Out No longer eligible b ased on patient's age to complete this topic RSV Immunization Patients Under 20 months Aged Out No longer eligible b ased on patient's age to complete this topic Varicella Vaccines Aged Out No longer eligible based on patient's age to complete this topic Goals Goal Patient Goal Type Associated Problems Recent Progress Patient-Stated? Author STG in 4 weeks General No Isela Alvarenga, PT Note: Short Term Goals 1. Initiate home exercise program. 2. Pain will be improved by 2-3 points on VAS. 3. Patient will improve core/hip strength by 1/3 grade on manual muscle testing. 4. Patient will improve lumbar ROM by 25%. LTG in 8-12 weeks General No Isela Alvarenga, PT Note: [place] Goals 1. Patient will be independent with home exercise program to maintain therapeutic gains. 2. Patient will be able to bend over with min to no pain 3. Patient will be able to perform ADLs/IADLs with min to no pain Procedures Procedure Name Priority Date/Time Associated Diagnosis Comments DEPRESSION SCREENING Routine 05/20/2024 LIPID PANEL Routine 05/20/2024 from Last 3 Months or Most Recently Relevant to Health Maintenance Results * Depression Screening (05/20/2024) Pathologist [facility] Depression Screening abstracted us Historical Provider HEALTH MAINTENANCE Final Result * (ABNORMAL) Lipid panel (05/20/2024) Pathologist [facility] LDL/HDL Ratio 3 0 - 4 Triglycerides 73 0 - 150 mg/dL Cholesterol 202(A) 0 - 200 mg/dL HDL 76 >=40 mg/dL LDL Cholesterol 112(A) 0 - 100 mg/dL Blood Venous blood specimen / Unknown us Historical Provider LAB BLOOD ORDERABLES Mari nicholas Result from Last 3 Months or Most Recently Relevant to Health Maintenance Insurance [facility] Care Teams Historical Society Director Relationship Specialty Start Date End Date Muna Kumari MD [address] [place] [id number] PCP - General Internal Medicine 06/22/22
== END 2024-12-16 13:57 | disposition home or self-care (01) ==
LOC: HO.HWSM 13:18
PROVIDERS: Visit Provider Advanced Practice Midwife
DX: Z01.419 Encounter for gynecological examination (general) (routine) without abnormal findings (principal); Z20.2 Contact with and (suspected) exposure to infections with a predominantly sexual mode of transmission
CPT/HCPCS: 99395; 99459

== ENCOUNTER 2025-01-22 12:40 | Outpatient (AMB) | payer OTHER, SELFPAY ==
--- OUTSIDE RECORDS SUMMARY | 2025-01-22 14:55 | XMS_ITS | Encounter Summary ---
Author Organization [facility] Address [address] [place] [address] Care Team Providers Care Pony Ride Operator Name Role Phone Muna Kumari MD Primary Care Provider Reason for Visit * Reason Onset Date Comments Chest Pain 01/22/2025 Encounter Details Date Type Department Care Team ([facility] st Contact Info) Description 01/22/2025 Telephone Adult Medicine - [place] [address] [place] [id number] Muna Kumari MD [address] [place] [address] Chest Pain Social History Tobacco Use Types Packs/Day Years Used Date Smoking Tobacco: Never Smokeless Tobacco: Never Alcohol Use Standard Drinks/Week Comments No 0 [...] care for your loved ones. For example, child care giver or elderly care for an older adult? [...] on file Sexual Orientation Not on file documented as of this encounter Progress Notes * Princess Thibodeaux RN - 01/22/2025 1:42 PM EDT Spoke with patient. Upper chest pain for almost 2 hours with tightness. Feels like can't catch breath. Advised ER. Patient is at an urgent care right now waiting to be seen. Advised she may be sent to ER by them. * Kelly Mulligan - 01/22/2025 1:14 PM EDT Symptoms patient is presenting: pt c/o chest pain and tightness in chest For ALL patients calling to schedule any appointment (routine, sick visit, follow up, consult, etc.) in the outpatient setting please ask the following questions: Do you have fever of higher than 101, sore throat with difficulty swallowing or severe shortness ofbreath? NO If YES to any of these above symptoms, send a message to triage and do not book. Red dot. If no, an audio or video visit should be booked. Have you had close contact with someone with Coronavirus in the last 14 days? NO Have you traveled abroad? NO Have you traveled recently to another state outside of [place], [place], [place], [place], [place], [place], [place]? NO o If yes, did you quarantine for 14 days or have a negative covid test? NO If yes to any of the above, patient is not to be scheduled in office until after 14 day quarantine or negative covid test. If pain or injury related was it due to an accident at work or from a motor vehicle accident? NO If yes, gather 3rd libertarian insurance information Date of accident/Injury: How long has patient had these symptoms?: 1 day PCP: Dr Kumari Payor: Victor Hugo documented in this encounter Plan of Treatment Not on file documented as of this encounter Goals Goal Patient Goal Type Associated Problems Recent Progress Patient-Stated? Author STG in 4 weeks General Isela Doherty, PT Note: Short Term Goals 1. Initiate home exercise program. 2. Pain will be improved by 2-3 points on VAS. 3. Patient will improve core/hip strength by 1/3 grade on manual muscle testing. 4. Patient will improve lumbar ROM by 25%. LTG in 8-12 weeks General Isela Doherty, PT Note: Detention Goals 1. Patient will be independent with home exercise program to maintain therapeutic gains. 2. Patient will be able to bend over with min to no pain 3. Patient will be able to perform ADLs/IADLs with min to no pain documented as of this encounter Visit Diagnoses Not on filedocumented in this encounter Additional Health Concerns Assessment Noted Time PHQ-9 Depression Total Score: 1 09/19/20 24 2:52 PM EST documented as of this encounter Care Teams Pony Ride Operator Relationship Specialty Start Date End Date Muna Kumari MD [address] [place] [address] PCP - General Internal Medicine 06/22/22 documented as of this encounter
--- OUTSIDE RECORDS SUMMARY | 2025-01-22 14:55 | XMS_ITS | Clinical Summary ---
Author Organization [facility] [address] [facility] [address] Address [address] [place] [address] Phone Care Team Providers Care Plastic Welder Name Role Phone Muna Kumari MD Primary Care Provider Allergies No known active allergies Medications medroxyPROGEST ERone 150 mg/mL injection INJECT 1 ML INTRAMUSCULARLY EVERY 12 WEEKS 05/29/20 24 Active Active Problems Problem Noted Date Diagnosed Date Anemia 07/24/2019 Encounters Date Type Department Care Team Description 01/22/2025 Telephone Adult Medicine - [place] [address] [place] [address] Muna Kumari MD Chest Pain from Last 3 Months Immunizations Name Administration [...] your loved ones. For example, child care attendant school or elderly care for an older adult? [...] - 2023-2 5 season) 2024 Influenza Vaccine (Season Ended) 2025 07/24/2019 Depression Screening 09/19/2025 09/19/2024, 05/20/2024 Social [...] age to complete this topic Meningococcal B Vaccine Aged Out No l onger eligible based on patient's age to complete [...] weeks General No Isela Alvarenga, PT Note: [facility] Goals 1. Patient will be independent with [...] Maintenance Results * Depression Screening (05/20/2024) Pathologist [facility] Depression Screening abstracted Historical Provider HEALTH MAINTENANCE Final Result * (ABNORMAL) Lipid panel (05/20/2024) Pathologist [facility] LDL/HDL Ratio 3 0 - 4 Triglycerides 73 0 - 150 mg/dL Cholesterol 202(A) 0 - 200 mg/dL HDL 76 >=40 mg/dL LDL Cholesterol 112(A) 0 - 100 mg/dL Blood Venous blood specimen / Unknown Historical Provider LAB BLOOD ORDERABLES Mari l Result from Last 3 Months or Most Recently Relevant to Health Maintenance Insurance [employer] Care Teams Plastic Welder Relationship Specialty Start Date End Date Muna Kumari MD [address] [place] [id number] PCP - General Internal Medicine 06/22/22
--- OUTSIDE RECORDS SUMMARY | 2025-01-22 14:55 | XMS_ITS | Data Portability ---
Author Organization [facility], [address] Address [address] [place] [address] Care Team Providers Care Inspector Chief Name Role Phone [facility] Care Provider Assessment No assessment recorded. Plan of Treatment Reminders Order Date Submit Date Provider Last Modified By Organization Details Last Modified Time Details Appointments None recorded. Lab None recorded. Referral None recorded. Procedures None recorded. Surgeries None recorded. Imaging None recorded. Medication Orders Augmentin 875 mg-125 mg tablet 2022 023 [facility]armacy #1130, [phone] [place], [address], 3 10:14:56 prednisone 20 mg tablet 2022 023 [facility]/Pharmacy #1130, [phone] [place], [address], 3 10:14:55 fexofenadin e-pseudoeph edrine ER 180 mg-240 mg tablet,ext. release 24 hr 2022 023 [facility]/Pharmacy #1130, [phone] [place], [address], 3 10:14:55 Allergy Relief (fluticason e) 50 mcg/actuati on nasal spray,suspe nsion 2022 023 [facility]/Pharmacy #1130, [phone] [place], [address], 3 10:14:54 Patient TargetsNo targets recorded. Patient Instructions Encounter Date Encounter Id Patient Instructions Last Modified By Organization Details Last Modified Time 03/11/2023 [id number] earache: care instructions Not available 03/11/2023 10:14:51 [...] taking a prescription pain medicine, take an gtht-nfz-zqztziy medicine, such as acetaminophen (Tylenol), ibuprofen (Advil, [...] e) 50 mcg/actuati on nasal spray,suspe nsion Colon 1 spray every day by intranasa l [...] Updated DateTime 3 152.4 cm 27.3 kg/m2 86047.9 3 g 18 /min 99.2 [degF] 0 77 /min 100 % 100 % 100 mm[Hg] 70 mm[Hg] [facility] 3 10:03:42 Social History Question Answer Notes LastModified by Organizat ion Details LastModified Time Tobacco Smoking Status Never Smoker [facility] 03/11/2023 10:00:59 What Is Your Level Of Alcohol Consumption? None [email or web address] Information not available 03/11/2023 Do You Use Any Illicit Or Recreational Drugs? No [email or web address] Information not available 03/11/2023 Do You Or Have You Ever Used Any Other Forms Of Tobacco Or Nicotine? No Information not available 03/11/2023 Sex: Unknown Functional [...] SNOMED-CT Code Diagnosis ICD10 Code Diagnosis Note [id number] [address] [place] [address] 03/02/2021 16:06:41 03/02/2021 16:45:57 [id number] [address] [place] [address] 09/30/2018 12:51:42 09/30/2018 13:26:27 [id number] [facility] [address] [place] [address] 09/27/2018 12:15:15 09/27/2018 12:49:19 [id number] [address] [place] [address] 03/07/2021 10:46:54 03/07/2021 12:40:02 [id number] [address] [place] [address] 05/07/2018 13:17:07 05/07/2018 14:39:52 [id number] BRANNON HORVATH MD [address] [place] [address] 02/17/2023 12:55:17 02/17/2023 13:46:22 History and physical examination, occupation 145403201 Z02.1 [id number] [place]heal Oneill [place] [address] [place] [address] 03/11/2023 09:40:42 03/11/2023 10:17:02 Acute left otitis media [id number] H66.92 Health Concerns Section Related Observation LastModified by Organization Detai ls LastModified Time None Recorded Concern Status LastModified by Organization Details LastModified Time None Recorded Advance Directives Directive None Recorded Payers Encounter Date Sequence Insurance Name Policy Number Policy Aguilera Covered Member ID Aguilera Member ID Guarantor Name 09/30/2018 2 [place] [facility] Christine Oglesby Vannorman [id number] Christine Vannorman 03/02/2021 1 [facility] (MEDICAID REPLACEMENT - HMO) GILLIAN Oglesby Vannorman [id number] Christine Vannorman 03/02/2021 2 [place] [facility] Christine Oglesby Vannorman [id number] Christine Vannorman 03/07/2021 1 [facility] (MEDICAID REPLACEMENT - HMO) [facility] Christine Oglesby Vannorman [id number] Christine Vannorman 03/07/2021 2 [place] [facility] Christine Oglesby Vannorman [id number] Christine Vannorman 02/17/2023 [employer] Christine Vannorman 03/11/2023 1 [facility] (MEDICAID REPLACEMENT - HMO) GILLIAN Oglesby Vannorman [id number] Christine Vannorman 03/11/2023 2 [place] Christine Oglesby Vannorman [id number] Christine Vannorman Notes Date Note Type Note [...] Oneill NP [address] [place], [address], [place] - [facility] 03/11/2023 10:15:08 OBGyn Episode No OBEpisode recorded.
--- NOTE | 2025-01-23 11:07 | AM.OFFVISNUR ---
Vital Signs 01/23/25 11:08 Height 5 ft Weight 136 lb BMI 26.6 Intake Visit Reasons: depo Allergies environmental allergies Allergy (Verified 12/16/24 13:25) Runny Nose Bleach (Sodium Hypochlorite) Adverse Reaction (Verified 12/16/24 13:25) Difficulty Breathing Nursing Note Christine returned today for her Depo-Provera inj. She came in yesterday , however was not feeling well with Shortness of breath and heart palpitations described by pt. Depo-Provera inj was held until today. Pt came in with notes from [facility], and felt it was anxiety attack, all tests were wnl. Pt aware to folllow up in 12 weeks for next inj. Next AG is scheduled for 05/2025. Office Procedures Depo Questionnaire If YES to any of the following questions, please consult a provider. Date of last injection: 11/06/24 Date of last gynecology exam: 05/29/24 Menstrual pattern since last injection has been: Not Applicable Irregular bleeding?: No Breast lumps or other breast changes?: No Changes in weight or appetite?: No Depression or changes in mood?: No Abnormal hair growth or loss?: No Skin problems (rash, acne, discoloration)?: No Pain at the injection site?: No Headaches?: No Nervousness?: No Abdominal pain or cramping?: No Dizziness or nausea?: No Fatigue or weakness?: No Decrease in sexual drive?: No Chest pain or shortness of breath?: Yes (saw urgent care yesterday, DX Anxiety attack.) Swelling in arms or legs?: No Form completed by?: Roni Smith LPN Office Meds Depo-Provera 150 mg/mL intramuscular syringe Performing Provider: Paulette Will CNM Performing Location: [facility] Administered by: Letty Smith LPN on 01/23/25 11:09 Dose Route Admin Location Dispensed Lot Number Expiration Date [facility] [employer] 150 mg IM RGM 1 mL [id number] 01/29/27 67511-305-85 [facility] Assessment & Plan Assessment & Plan Orders: Orders AMB Medroxyprogesterone Injection Patient Supplied 01/22/25 Z30.42 - Encounter for surveillance of injectable contraceptive Medications: New Depo-Provera (medroxyprogesterone) 150 mg IM ONCE 1 mL 0RF NS Z30.42 - Encounter for surveillance of injectable contraceptive Coding Level of Care Code Established Pt Est Pt Level 1 (33480) Patient Type Established History Problem Focused Exam Problem Focused Medical Decision Making Straight Forward Time Spent (min) 20
[2025-01-23 11:08] VITALS: BMI 26.6
== END 2025-01-23 10:37 | disposition left against medical advice (07) ==
LOC: HO.HWS 12:40
PROVIDERS: Visit Provider Advanced Practice Midwife
DX: Z30.42 Encounter for surveillance of injectable contraceptive (principal)

== ENCOUNTER → 2025-01-22 12:40 | Outpatient (BNVA) | payer OTHER, SELFPAY | PROVIDERS: Visit Provider Advanced Practice Midwife | DX: Z30.42 Encounter for surveillance of injectable contraceptive (principal) | CPT/HCPCS: 96372; 99211; J1050 ==

== ENCOUNTER 2025-04-15 09:12 | Outpatient (AMB) | payer OTHER, SELFPAY ==
[2025-04-15 09:27] VITALS: BMI 27.4
--- NOTE | 2025-04-15 09:27 | AM.OFFVISNUR ---
Vital Signs 04/15/25 09:27 Height 5 ft Weight 140 lb 4 oz BMI 27.4 Intake Visit Reasons: depo Allergies environmental allergies Allergy (Verified 12/16/24 13:25) Runny Nose Bleach (Sodium Hypochlorite) Adverse Reaction (Verified 12/16/24 13:25) Difficulty Breathing Nursing Note sunny is here for her scheduled Depo-provera inj. She denies any new problems or concerns.Not scheduled for AG for about 6 months, will try to move up sooner. Office Procedures Depo Questionnaire If YES to any of the following questions, please consult a provider. Date of last injection: 01/23/25 Date of last gynecology exam: 05/29/24 Menstrual pattern since last injection has been: Not Applicable Irregular bleeding?: No Breast lumps or other breast changes?: No Changes in weight or appetite?: Yes (gained, pt trying to gain weight.) Depression or changes in mood?: No Abnormal hair growth or loss?: No Skin problems (rash, acne, discoloration)?: No Pain at the injection site?: No Headaches?: Yes (but has always had headaches from ''stress per pt''.) Nervousness?: No Abdominal pain or cramping?: No Fatigue or weakness?: No Decrease in sexual drive?: No Chest pain or shortness of breath?: No Swelling in arms or legs?: No Form completed by?: Roni Smith LPN Office Meds Depo-Provera 150 mg/mL intramuscular syringe Performing Provider: Paulette Will CNM Performing Location: [facility] Administered by: Letty Smith LPN on 04/15/25 09:27 Dose Route Admin Location Dispensed Lot Number Expiration Date [facility] [employer]in[employer] 150 mg IM LGM 1 mL [id number] 08/31/27 69566-898-67 [facility] Total Dispensed Waste 1 mL 0 % Assessment & Plan Assessment & Plan Orders: Orders AMB Medroxyprogesterone Injection Patient Supplied Today Z30.9 - Encounter for contraceptive management, unspecified Coding Level of Care Code Established Pt Est Pt Level 1 (55229) Patient Type Established History Problem Focused Exam Problem Focused Medical Decision Making Straight Forward Time Spent (min) 20
--- OUTSIDE RECORDS SUMMARY | 2025-04-15 09:34 | XMS_ITS | Encounter Summary ---
Author Organization [facility] Address [address] [place] [address] Care Team Providers Care Cuffer Name Role Phone Jorge Marie MD Primary Care Provide Muna Moreno MD Primary Care Provider + [phone] Reason for Visit * Reason Onset Date Comments Medication 12/11/2019 Encounter Details Date Type Department Care Team Description 12/11/2019 Telephone Adult Medicine - [address] [address] Jorge Marie MD Medication Social History Tobacco Use Types Packs/Day Years Used Date Smoking Tobacco: Never Smokeless Tobacco: Never Alcohol Use Standard Drinks/Week Comments No 0 (1 standard drink = 0.6 oz pur e alcohol) Sex Assigned at Date Recorded Not on file Job Start Date Occupation Industry Not on file Not on file Not on file documented as of this encounter Miscellaneous Notes * Telephone Encounter - Jorge Marie MD - 12/12/2019 6:57 AM EDT I never met patient. I did not order this. * Telephone Encounter - Raven Castaneda M.A. - 12/11/2019 3:15 PM EDT Called pharmacy spoke with Laureano she said rx is not covered by insurance. * Telephone Encounter - Dominique Hao - 12/11/2019 3:00 PM EDT Pt is calling. Pharmacy never received the RX for Nutritional Supplements (ENSURE NUTRITION SHAKE) Liquid. She would like this re faxed. Pharmacy confirmed. She is asking for chocolate, strawberry and vanilla. Please advise. documented in this encounter Plan of Treatment Not on file documented as of this encounter Visit Diagnoses Not on filedocumented in this encounter Care Teams Cuffer Relationship Specialty Start Date End Date Jorge Marie MD PCP - General Internal Medicine 07/23/19 Muna Kumari MD [address] [place] [address] PCP - General Internal Medicine 06/22/22 documented as of this encounter
--- OUTSIDE RECORDS SUMMARY | 2025-04-15 09:34 | XMS_ITS | Data Portability ---
Author Organization [facility], [address] Address [address] [place] [address] Care Team Providers Care Body Sander Name Role Phone [facility] Care Provider Assessment No assessment recorded. Plan of Treatment Reminders Order Date Submit Date Provider Last Modified By Organization Details Last Modified Time Details Appointments None recorded. Lab None recorded. Referral None recorded. Procedures None recorded. Surgeries None recorded. Imaging None recorded. Medication Orders Augmentin 875 mg-125 mg tablet 2022 023 [facility]armacy #[id number], [phone] [place], [address], 3 10:14:56 prednisone 20 mg tablet 2022 023 [facility]/Pharmacy #[id number], [phone] [place], [address], 3 10:14:55 fexofenadin e-pseudoeph edrine ER 180 mg-240 mg tablet,ext. release 24 hr 2022 023 [facility]/Pharmacy #[id number], [phone] [place], [address], 3 10:14:55 Allergy Relief (fluticason e) 50 mcg/actuati on nasal spray,suspe nsion 2022 023 [facility]/Pharmacy #[id number], [phone] [place], [address], 3 10:14:54 Patient TargetsNo targets recorded. Patient Instructions Encounter Date Encounter Id Patient Instructions Last Modified By Organization Details Last Modified Time 03/11/2023 [id number] earache: care instructions Not available 03/11/2023 10:14:51 [...] taking a prescription pain medicine, take an xmxg-drs-gqdggxo medicine, such as acetaminophen (Tylenol), ibuprofen (Advil, [...] to take the full course of antibiotics. Not available 03/11/2023 10:14:49 Reason for Referral None Reported. Problems No Known Problems Procedures Surgical History Date Name Laterality Status Provider Name and Address Organization Details Recorded Time 3 OC-UDS Send Out Template NON DOT completed MERCED HANNA PA - [facility] 02/17/2023 13:43:30 Imaging Results [...] e) 50 mcg/actuati on nasal spray,suspe nsion [place] 1 spray every day by intranasa l route as directed for 30 days. 2022 active Not Available Not Available Not Avai lable Vitals Date Recorded Body height Body mass index (BMI) Body weight Respiratory rate Body temperature Heart rate Oxygen saturation Oxygen saturation in Arterial blood by Pulse oximetry Systolic And Diastolic Provider Name and Address Organization Details Last Updated DateTime 3 152.4 cm 27.3 kg/m2 49959.9 3 g 18 /min 99.2 [degF] 77 /min 100 % 100 % 100/70 mm[Hg] Kat NICOLAS - [facility] 3 10:03:42 Social History None recorded. Functional Status Question Answer Note LastModified by Organizat ion Details LastModified Time Do you use any illicit or recreational drugs? No [email or web address] Information not available 03/11/2023 Do you or have you ever used any other forms of tobacco or nicotine? No [email or web address] Information not available 03/11/2023 What is your level of alcohol consumption? None Information not available 03/11/2023 Mental Status None recorded. Family History Nothing Reported. Medical History No medical history recorded. Gynecological History Statement/Question Response Date of LMP 03/11/2023 Is there any chance of ? No LMP Approximate Obstetrics History GPAL:G 0 P 0 0 0 0 Past Encounters Encounter ID Performer Location Encounter Start Date Encounter Closed Date Diagnosis/Indication Diagnosis SNOMED-CT Code Diagnosis ICD10 Code Diagnosis Note [id number] [address] [place] [address] 03/02/2021 16:06:41 03/02/2021 16:45:57 [id number] [address] [place] [address] 09/30/2018 12:51:42 09/30/2018 13:26:27 [id number] [address] [place] [address] 09/27/2018 12:15:15 09/27/2018 12:49:19 [id number] [address] [place] [address] 03/07/2021 10:46:54 03/07/2021 12:40:02 [id number] [address] [place] [address] 05/07/2018 13:17:07 05/07/2018 14:39:52 [id number] BRANNON HORVATH MD [address] [place] [address] 02/17/2023 12:55:17 02/17/2023 13:46:22 History and physical examination, occupation 511941727 Z02.1 [id number] Micheal Oneill NP [address] [facility] JONES maddox [address] 03/11/2023 09:40:42 03/11/2023 10:17:02 Acute left otitis media [id number] H66.92 Health Concerns Section Related Observation LastModified by Organization Detai ls LastModified Time None Recorded Concern Status LastModified by Organization Details LastModified Time None Recorded Advance Directives Directive None Recorded Payers Insurance Date Sequence Insurance Name Policy Number Policy Aguilera Covered Member ID Aguilera Member ID Guarantor Name 02/17/2023 OC-ESCREEN [employer] Christine Vannorman 03/11/2023 1 [facility] - [facility] (MEDICAID REPLACEMENT - HMO) [facility] Christine Oglesby Vannorman [id number] Christine Vannorman 03/11/2023 2 [place] [facility] Christine Oglesby Vannorman [id number] Christine Vannorman Notes Date Note Type Note [...] Oneill NP [address] [place], [address], [place] - [facility] 03/11/2023 10:15:08 OBGyn Episode No OBEpisode recorded.
--- OUTSIDE RECORDS SUMMARY | 2025-04-15 09:34 | XMS_ITS | Clinical Summary ---
Author Organization [facility] [address] [facility] [address] Address [address] [place] [address] Phone Care Team Providers Care Supervising Film Or Videotape Editor Name Role Phone Muna Kumari MD Primary Care Provider Allergies No known active allergies Medications medroxyPROGEST ERone 150 mg/mL injection INJECT 1 ML INTRAMUSCULARLY EVERY 12 WEEKS 05/29/20 24 Active Active Problems Problem Noted Date Diagnosed Date Anemia 07/24/2019 Encounters Date Type Department Care Team Description 01/22/2025 Telephone Adult Medicine - [place] [address] [place] [address] Muna Kumari MD Chest Pain [...] for your loved ones. For example, children's author or elderly care for an older adult? [...] 100 09/19/2024 3:18 PM EST Temperature 36.4 C (97.6 F) 09/19/2024 3:18 PM EST Respiratory Rate - - Oxygen Saturation - [...] 2023-2 5 season) 2024 Influenza Vaccine (#1) 2025 07/24/2019 Depression Screening 09/19/2025 09/19/2024, 05/20/2024 [...] 5 Years) and At-Risk Patients (6 to 49 Years) Aged Out No longer eligible b [...] weeks General No Isela Alvarenga, PT Note: Nursing Home Goals 1. Patient will be independent with [...] Maintenance Results * Depression Screening (05/20/2024) Pathologist [facility] Depression Screening abstracted Historical Provider HEALTH MAINTENANCE Final Result * (ABNORMAL) Lipid panel (05/20/2024) LDL/HDL Ratio 3 0 - 4 Triglycerides 73 0 - 150 mg/dL Cholesterol 202(A) 0 - 200 mg/dL HDL 76 >=40 mg/dL LDL Cholesterol 112(A) 0 - 100 mg/dL Blood Venous blood specimen / Unknown Historical Provider LAB BLOOD ORDERABLES Mari l Result from Last 3 Months or Most Recently Relevant to Health Maintenance Insurance [employer] Care Teams Supervising Film Or Videotape Editor Relationship Specialty Start Date End Date Muna Kumari MD [address] [place] [id number] PCP - General Internal Medicine 06/22/22
== END 2025-04-15 09:26 | disposition home or self-care (01) ==
LOC: HO.HWS 09:12
PROVIDERS: Visit Provider Advanced Practice Midwife
DX: Z30.9 Encounter for contraceptive management, unspecified (principal)

== ENCOUNTER → 2025-04-15 09:12 | Outpatient (BNVA) | payer OTHER, SELFPAY | PROVIDERS: Visit Provider Advanced Practice Midwife | DX: Z30.013 Encounter for initial prescription of injectable contraceptive (principal) | CPT/HCPCS: 96372; 99211; J1050 ==

== ENCOUNTER 2025-07-02 09:23 | Outpatient (AMB) | payer OTHER, SELFPAY ==
[2025-07-02 09:43] VITALS: BMI 28.3
--- NOTE | 2025-07-02 09:43 | AM.OFFVISNUR ---
Vital Signs 07/02/25 09:43 Height 5 ft Weight 145 lb BMI 28.3 Intake Visit Reasons: depo Allergies environmental allergies Allergy (Verified 12/16/24 13:25) Runny Nose Bleach (Sodium Hypochlorite) Adverse Reaction (Verified 12/16/24 13:25) Difficulty Breathing Nursing Note patient here for depo injection. no complaints and will schedule next apt in 12 weeks Office Procedures Depo Questionnaire If YES to any of the following questions, please consult a provider. Date of last injection: 04/15/25 Date of last gynecology exam: 05/31/24 Menstrual pattern since last injection has been: Not Applicable Irregular bleeding?: No Breast lumps or other breast changes?: No Changes in weight or appetite?: No Depression or changes in mood?: No Abnormal hair growth or loss?: No Skin problems (rash, acne, discoloration)?: No Pain at the injection site?: No Headaches?: No Nervousness?: No Abdominal pain or cramping?: No Dizziness or nausea?: No Fatigue or weakness?: No Chest pain or shortness of breath?: No Swelling in arms or legs?: No Form completed by?: Isela Hollingsworth lpn Office Meds Depo-Provera 150 mg/mL intramuscular syringe Performing Provider: Paulette Will CNM Performing Location: [facility] Administered by: Isela Hollingsworth LPN on 07/02/25 09:44 Dose Route Admin Location Dispensed Lot Number Expiration Date [facility] Field Clerk 150 mg IM RGM 1 mL [id number] 08/31/27 32634-008-83 [facility] Total Dispensed Waste 1 mL 0 % Assessment & Plan Assessment & Plan Orders: Orders AMB Medroxyprogesterone Injection Patient Supplied Today Z30.42 - Encounter for surveillance of injectable contraceptive Coding Level of Care Code Established Pt Est Pt Level 1 (35779) Patient Type Established History Problem Focused Exam Problem Focused Medical Decision Making Straight Forward Time Spent (min) 20
--- OUTSIDE RECORDS SUMMARY | 2025-07-02 10:13 | XMS_ITS | Clinical Summary ---
Author Organization [facility] [address] [facility] [address] Address [address] [place] [address] Phone Care Team Providers Care Industrial Sweeper Cleaner Name Role Phone Muna Kumari MD Primary Care Provider Allergies No known active allergies Medications medroxyPROGEST ERone 150 mg/mL injection INJECT 1 ML INTRAMUSCULARLY EVERY 12 WEEKS 05/29/20 24 Active Active Problems Problem Noted Date Diagnosed Date Anemia 07/24/2019 Encounters Date Type Department Care Team Description 05/21/2025 Telephone Adult Medicine - [place] [address] [place] [address] Muna Kumari MD from Last 3 Months Immunizations Immunization Administration Dates Next Due HPV 9-valent (Gardisil) [...] care for your loved ones. For example, childrens club attendant or elderly care for an older adult? [...] Date Recorded What is your living situation? Unrecognized valu e 09/19/2024 Comments No Sex and Gender Information Value [...] HIV Screening 09/04/2022 Hepatitis C Screening 09/04/2022 Depression Screening 10/02/2024 09/19/2024, 05/20/2024 COVID-19 Vaccine (1 - 2023-2 5 season) 2025 Influenza Vaccine (#1) 2025 07/24/2019 Social Influencers of Health Screening 09/19/2025 09/19/2024 Cholesterol Screening (Lipid Panel) 05/20/2029 05/20/2024, 05/20/2024 RSV Immunization Adult Patients (1 - 1-dose 75+ series) 2074 HIB Vaccines Aged Out No longer eligi [...] weeks General No Isela Alvarenga, PT Note: Correction Goals 1. Patient will be independent with [...] Health Maintenance Results * Depression Screening (05/20/2024) [facility] Depression Screening abstracted Historical Provider HEALTH MAINTENANCE Final Result * (ABNORMAL) Lipid panel (05/20/2024) [facility] LDL/HDL Ratio 3 0 - 4 Triglycerides 73 0 - 150 mg/dL Cholesterol 202(A) 0 - 200 mg/dL HDL 76 >=40 mg/dL LDL Cholesterol 112(A) 0 - 100 mg/dL Blood Venous blood specimen / Unknown Historical Provider LAB BLOOD ORDERABLES Mari l Result from Last 3 Months or Most Recently Relevant to Health Maintenance Insurance [facility] Care Teams Industrial Sweeper Cleaner Relationship Specialty Start Date End Date Muna Kumari MD [address] [place] [id number] PCP - General Internal Medicine 06/22/22
--- OUTSIDE RECORDS SUMMARY | 2025-07-02 10:13 | XMS_ITS ---
Author Name [facility] Organization Unknown Care Team Organization Name Specialty Phone Email Start Date End Da te [facility] Muna Kumari MD Primary Care 07/05/2023 05/20/2024 [facility] Jerry Chambers Primary Care 12/07/20222023 [facility] Daylin Ochoa Primary Care 08/09/2022 05/20/20 24
== END 2025-07-02 10:01 | disposition home or self-care (01) ==
LOC: HO.HWS 09:23
PROVIDERS: Visit Provider Advanced Practice Midwife
DX: Z30.42 Encounter for surveillance of injectable contraceptive (principal)

== ENCOUNTER → 2025-07-02 09:23 | Outpatient (BNVA) | payer OTHER, SELFPAY | PROVIDERS: Visit Provider Advanced Practice Midwife | DX: Z30.42 Encounter for surveillance of injectable contraceptive (principal) | CPT/HCPCS: 96372; 99211; J1050 ==

== ENCOUNTER 2025-09-17 09:39 | Outpatient (AMB) | payer OTHER, SELFPAY ==
--- NOTE | 2025-09-17 09:59 | AM.OFFVISNUR ---
Vital Signs 09/17/25 09:59 Weight 151 lb 8 oz Intake Visit Reasons: depo Allergies environmental allergies Allergy (Verified 12/16/24 13:25) Runny Nose Bleach (Sodium Hypochlorite) Adverse Reaction (Verified 12/16/24 13:25) Difficulty Breathing Nursing Note Christine is here today for her scheduled Depo-provera inj. She denies any problems or concerns with her Depo-Provera. Follow up in 12 wks for AG and Depo-Provera inj. Office Procedures Depo Questionnaire If YES to any of the following questions, please consult a provider. Date of last injection: 07/02/25 Date of last gynecology exam: 05/29/24 Menstrual pattern since last injection has been: Not Applicable Irregular bleeding?: No Breast lumps or other breast changes?: No Changes in weight or appetite?: Yes (weight gain which pt is ok with.) Depression or changes in mood?: No Abnormal hair growth or loss?: No Skin problems (rash, acne, discoloration)?: No Pain at the injection site?: No Headaches?: No Nervousness?: No Abdominal pain or cramping?: No Dizziness or nausea?: No Fatigue or weakness?: No Decrease in sexual drive?: No Chest pain or shortness of breath?: No Swelling in arms or legs?: No Form completed by?: Roni Smith LPN Office Meds Depo-Provera 150 mg/mL intramuscular syringe Performing Provider: Paulette iWll CNM Performing Location: [facility] Administered by: Letty Smith LPN on 09/17/25 09:59 Dose Route Admin Location Dispensed Lot Number Expiration Date [facility] Lump Room Supervisor 150 mg IM left gluteus 1 mL [id number] 11/21/27 62672-897-80 [facility] Total Dispensed Waste 1 mL 0 % Assessment & Plan Assessment & Plan Orders: Orders AMB Medroxyprogesterone Injection Patient Supplied Today Z30.9 - Encounter for contraceptive management, unspecified Coding Level of Care Code Established Pt Est Pt Level 1 (34151) Patient Type Established History Problem Focused Exam Problem Focused Medical Decision Making Straight Forward Time Spent (min) 20
--- OUTSIDE RECORDS SUMMARY | 2025-09-17 11:14 | XMS_ITS | Clinical Summary ---
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 For example, child guidance counselor or elderly care for an older adult? [...] on file Sexual Orientation Not on file Last Filed Vital Signs Vital Sign Reading [...] 10/02/2024 09/19/2024, 05/20/2024 COVID-19 Vaccine (1 - 2024-2 6 season) 2025 Influenza Vaccine (#1) 2025 07/24/2019 [...] weeks General No Isela Alvarenga, PT Note: Jail Goals 1. Patient will be independent with [...] * Depression Screening (05/20/2024) Pathologist [facility] Depression Screening abstracted Historical Provider HEALTH MAINTENANCE Final Result * (ABNORMAL) Lipid panel (05/20/2024) [facility] LDL/HDL Ratio 3 0 - 4 Triglycerides 73 0 - 150 mg/dL Cholesterol 202(A) 0 - 200 mg/dL HDL 76 >=40 mg/dL LDL Cholesterol 112(A) 0 - 100 mg/dL Blood Venous blood specimen / Unknown Historical Provider LAB BLOOD ORDERABLES Mari l Result from Last 3 Months or Most Recently Relevant to Health Maintenance Insurance [facility] PL[facility] 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
== END 2025-09-17 09:57 | disposition home or self-care (01) ==
LOC: HO.HWS 09:40
PROVIDERS: Visit Provider Advanced Practice Midwife
DX: Z30.9 Encounter for contraceptive management, unspecified (principal)

== ENCOUNTER → 2025-09-17 09:39 | Outpatient (BNVA) | payer OTHER, SELFPAY | PROVIDERS: Visit Provider Advanced Practice Midwife | DX: Z30.42 Encounter for surveillance of injectable contraceptive (principal) | CPT/HCPCS: 96372; 99211; J1050 ==